=== PATIENT | female | born 1960 | race Caucasian/White ===

== ENCOUNTER 2018-05-22 00:02 | Emergency (ER) | payer OTHER ==
[2018-05-22] MEDS ORDERED: diphenhydrAMINE HCL 25 MG CAPSULE (FP) PO ONE ×2 (00:08→00:19)
[2018-05-22] MEDS ORDERED: RANITIDINE HCL 150 MG TABLET (FP) PO ONE (00:08)
--- NOTE | 2018-05-22 00:08 | PDOC ---
History of Present Illness - History of Present Illness Initial Comments: This patient is a 58 year old female with past medical history of hyperlipidemia , who presents with urticaria. Patient reports that she is nearing the completion of Macrobid for urinary tract infection. Patient states that she noticed hives developing and became very itchy. She denies difficulty breathing, chest pain, shortness of breath, nausea, vomiting, diarrhea. Denies throat swelling or changes in voice. 05/22/18 00:27 <Katya Mosqueda - Last Filed: 05/22/18 00:26> - General History Source: Patient Exam Limitations: No Limitations <Cyrus Hernandes - Last Filed: 05/22/18 01:38> - General Stated Complaint: ALLERGIC REACTION Time Seen by Provider: 05/22/18 00:07 Past History <Katya Mosqueda - Last Filed: 05/22/18 00:26> - Past Medical History Anemia: No Asthma: No Cancer: No Cardiac Disorders: No CVA: No COPD: No CHF: No Dementia: No Diabetes: No GI Disorders: Yes (WHEN I TAKE NAPROXEN TOO MUCH) Disorders: No HTN: No Hypercholesterolemia: Yes Liver Disease: No Seizures: No Thyroid Disease: No - Surgical History Abdominal Surgery: No Appendectomy: No Cardiac Surgery: No Cholecystectomy: No Lung Surgery: No Neurologic Surgery: No Orthopedic Surgery: Yes (RIGHT CARPAL TUNNEL,CERVICAL SPINE) - Suicide/Smoking/Psychosocial Hx Smoking History: Never smoked Have you smoked in the past 12 months: No Hx Alcohol Use: No Drug/Substance Use Hx: No Substance Use Type: None Hx Substance Use Treatment: No <Cyrus Hernandes - Last Filed: 05/22/18 01:38> - Past Medical History Allergies/Adverse Reactions: Allergies Allergy/AdvReac Type Severity Reaction Status Date / Time acetaminophen [From Vicodin] Allergy Verified 05/22/18 00:17 hydrocodone bitartrate Allergy Verified 05/22/18 00:17 [From Vicodin] Home Medications: Ambulatory Orders Simvastatin [Zocor -] 20 mg PO HS 03/17/14 Diphenhydramine HCl [Benadryl -] 25 mg PO Q6H PRN #28 capsule 05/22/18 Epinephrine [Epipen 2-Serafin] 0.3 mg IJ ASDIR PRN #1 kit 05/22/18 Famotidine [Pepcid] 20 mg PO BID PRN #14 tablet 05/22/18 Prednisone [Deltasone] 60 mg PO DAILY #12 tablet 05/22/18 Review of Systems - Review of Systems Comments:: GENERAL/CONSTITUTIONAL: No fever or chills. No weakness. HEAD, EYES, EARS, NOSE AND THROAT: No change in vision. No ear pain or discharge. No sore throat. CARDIOVASCULAR: No chest pain or shortness of breath. RESPIRATORY: No cough, wheezing, or hemoptysis. GASTROINTESTINAL: No nausea, vomiting, diarrhea or constipation. GENITOURINARY: No dysuria, frequency, or change in urination. MUSCULOSKELETAL: No joint or muscle swelling or pain. No neck or back pain. SKIN: Hives on arms,legs, & chest. NEUROLOGIC: No headache, vertigo, loss of consciousness, or change in strength/ sensation. ENDOCRINE: No increased thirst. No abnormal weight change. HEMATOLOGIC/LYMPHATIC: No anemia, easy bleeding, or history of blood clots. ALLERGIC/IMMUNOLOGIC: +hives diffusely. <Katya Mosqueda - Last Filed: 05/22/18 00:26> *Physical Exam - Vital Signs Last Vital Signs Temp Pulse Resp BP Pulse Ox 98.1 F 76 20 145/98 97 05/22/18 00:09 05/22/18 00:09 05/22/18 00:09 05/22/18 00:09 05/22/18 00:09 - Physical Exam Comments: GENERAL: Awake, alert, and fully oriented, in no acute distress HEAD: No signs of trauma EYES: PERRLA, EOMI, sclera anicteric, conjunctiva clear ENT: Auricles normal inspection, hearing grossly normal, nares patent, oropharynx clear. Moist mucosa LUNGS: Breath sounds equal, clear to auscultation bilaterally. No wheezes, and no crackles HEART: Regular rate and rhythm, normal S1 and S2, no murmurs, rubs or gallops ABDOMEN: Soft, nontender, normoactive bowel sounds. No guarding, no rebound. No masses EXTREMITIES: Normal range of motion, no edema. No clubbing or cyanosis. No cords, erythema, or tenderness NEUROLOGICAL: Cranial nerves II through XII grossly intact. Normal speech, normal gait SKIN: Diffuse uticaria UE, LE, and chest. Warm, Dry, normal turgor. 05/22/18 00:24 <Katya Mosqueda - Last Filed: 05/22/18 00:26> Moderate Sedation - Procedure Monitoring Vital Signs: Procedure Monitoring Vital Signs Temperature 98.1 F 05/22/18 00:09 Pulse Rate 76 05/22/18 00:09 Respiratory Rate 20 05/22/18 00:09 Blood Pressure 145/98 05/22/18 00:09 O2 Sat by Pulse Oximetry (%) 97 05/22/18 00:09 <Katya Mosqueda - Last Filed: 05/22/18 00:26> Medical Decision Making - Medical Decision Making 05/22/18 00:14 A portion of this note was documented by scribe services under my direction. I have reviewed the details of the note, within reason, and agree with the documentation with the following case summary and management plan written by me. Patient treated in the ED. Nursing notes are reviewed and incorporated into the medical decision-making. Vital signs reviewed. 58-year-old female with past medical history of hyperlipidemia presents with urticaria. Patient reports that she is nearing the completion of Macrobid for urinary tract infection. However, the patient was taken a lozenge as well as her statin as well as her Macrobid seen time assessment developed urticaria. Denies difficulty breathing or chest pain short of breath, nausea, vomiting, diarrhea. Denies throat swelling or changes in voice. The itching is worsening so came to the ER. I suspect patient likely having ALLERGIC reaction to the medication. It is unclear if it's to Macrobid, statin, or lozenge. I advised the patient to stop taking his medications until cleared by an senior center director. We'll initiate with Benadryl and Zantac and reassess. 05/22/18 01:33 Pt feels much better after the prednisone, benadryl and zantac. Pt will follow up with senior center director. Will also prescribe epipen. I discussed the physical exam findings, ancillary test results and final diagnoses with the patient. I answered all of the patient's questions. The patient was satisfied with the care received and felt comfortable with the discharge plan and treatment plan. The patient will call their primary care physician within 24 hours to arrange follow-up and will return to the Emergency Department with any new, persistant or worsening symptoms. <Cyrus Hernandes - Last Filed: 05/22/18 01:38> *DC/Admit/Observation/Transfer - Attestations Scribe Attestion: 05/22/18 00:30 Documentation prepared by Katya Mosqueda, acting as director medical economics for Cyrus Hernandes MD. <Katya Mosqueda - Last Filed: 05/22/18 00:26> - Discharge Dispostion Decision to Admit order: No <Cyrus Hernandes - Last Filed: 05/22/18 01:38> Diagnosis at time of Disposition: Allergic reaction Qualifiers: Encounter type: initial encounter Qualified Code(s): T78.40XA - Allergy, unspecified, initial encounter - Discharge Dispostion Disposition: HOME Condition at time of disposition: Good - Prescriptions Prescriptions: Diphenhydramine HCl [Benadryl -] 25 mg PO Q6H PRN #28 capsule PRN Reason: Itching Epinephrine [Epipen 2-Serafin] 0.3 mg IJ ASDIR PRN #1 kit PRN Reason: Anaphylaxis Famotidine [Pepcid] 20 mg PO BID PRN #14 tablet PRN Reason: Allergic Reaction/GERD Prednisone [Deltasone] 60 mg PO DAILY #12 tablet - Referrals Referrals: Jose Terry MD [Staff Physician] - - Patient Instructions Printed Discharge Instructions: DI for Adverse Drug Reaction -- Allergic Additional Instructions: Please take 25 mg benadryl every 12 hours as needed for itching. For additional relief, take 20 mg pepcid every 12 hours (this will also help with acid reflux). Please finish the steroids (prednisone) for the next several days. Drink plenty of fluids and rest. If you ever feel like you cannot breathe because your throat swelled up from the allergic reaction, use the epipen and come to the ER. Stop taking the antibiotic (nitrofurantoin), lozenge (for sore throat), and statin and follow up with an senior center director. Call to schedule an appointment.
[2018-05-22 00:17] VITALS: BP 145/98; PULSE 76; TEMP 98.1; BMI 31.2
[2018-05-22] MEDS ORDERED: RANITIDINE HCL 150 MG TABLET (FP) ONE (00:20)
[2018-05-22] MEDS ORDERED: predniSONE 20 MG TABLET (UD) PO ONE (00:38)
[2018-05-22] MEDS ORDERED: predniSONE 20 MG TABLET (UD) ONE (00:58)
== END 2018-05-22 02:21 | disposition home or self-care (01) ==
LOC: JER 00:02
DX: T78.40XA Allergy, unspecified, initial encounter (principal); L50.0 Allergic urticaria
CPT/HCPCS: 99282-25